=== PATIENT | female | born 1950 | race Caucasian/White ===

== ENCOUNTER 2020-05-16 12:31 | Emergency (ER) | payer OTHER, SELFPAY ==
[2020-05-16 12:44] VITALS: BP 218/104; PULSE 84; RESP 28; O2SAT 98; BMI 23.0
--- NOTE | 2020-05-16 12:48 | DI.RAD.S_ITS ---
PROCEDURE: XR FINGER RT MIN 2V INDICATIONS: distal right middle finger injury TECHNIQUE: AP hand, 2 views of the 3rd finger(s) acquired. COMPARISON: None. FINDINGS: Bones: Displaced fracture involving 3rd distal phalangeal tuft is seen. No other fracture or dislocation. No suspicious bony lesions. Soft tissues: Soft tissue defect involving radial aspect of 3rd finger tip is seen with extensive adjacent soft tissue swelling. No radiopaque foreign body is seen. IMPRESSION: Likely traumatic amputation involving tip of 3rd finger with displaced fracture involving 3rd distal phalangeal tuft. No radiopaque foreign body is seen. Dictated by: Sachin Wang M.D. on 05/16/2020 at 13:26 Approved by: Sachin Wang M.D. on 05/16/2020 at 13:28
[2020-05-16] MEDS: LIDO 1%/SOD BICARB 8.4% (10ML) 10 ML SYRINGE INJ (12:52)
--- NOTE | 2020-05-16 12:59 | ED_ITS ---
HPI - General Adult General Chief complaint: Extremity Injury, Upper Stated complaint: crushed middle finger right hand, states severed Time Seen by Provider: 05/16/20 12:48 Source: patient Mode of arrival: Ambulatory Limitations: no limitations History of Present Illness HPI narrative: Patient is a 69-year-old [id number] female who is here for evaluation of injury to her right middle finger. She states that she got it caught in a ladder as it was closing and felt like cut the tip of her finger off. Had also took her nail off as well. She is up-to-date on all of her immunizations. Covered with the bandage she came to the emergency department for evaluation. Related Data Previous Rx's Medication Instructions Recorded hydrocodone-acetaminophen 1 tab PO Q4-6H PRN #14 tab 05/16/20 Allergies Allergy/AdvReac Type Severity Reaction Status Date / Time Penicillins Allergy Verified 05/16/20 12:52 vancomycin AdvReac Verified 05/16/20 12:51 Review of Systems Constitutional Constitutional: Denies headache(s) ENT Ears, Nose, Mouth, and Throat: Denies headache(s) Musculoskeletal Comments: Injury to right middle finger Integumentary/Breasts Comments: Injury to right middle finger and nail Neurologic Neurologic: Denies behavioral changes and Denies headache(s) Psychiatric Psychiatric: Denies behavioral changes Hematologic/Lymphatic On Anticoagulants: No Patient History Medical History Healthy adult Social History Smoking Status: Never smoker Smoking Status: Never smoker alcohol intake frequency: holidays/special occasions only Substance Use Type: does not use Exam Initial Vital Signs Initial Vital Signs: Vital Signs Pulse Rate 84 05/16/20 12:44 Respiratory Rate 28 H 05/16/20 12:44 Blood Pressure 218/104 H 05/16/20 12:44 Pulse Oximetry 98 05/16/20 12:44 Const General: cooperative and comfortable Limitations: mental status not altered Cardio Pulses: radial pulses present on the right Skin Other: Patient with an avulsion of the soft tissue of the right middle finger radial aspect. It does not involve the D IP joint. The fingernail was also involved with does not appear to involve the nailbed. Neuro Sensory Exam: no sensory deficits noted Extrem Other: see skin section Procedures Nerve Block Nerve Block 1: Time out performed: Yes Local Anesthetic: lidocaine 1% and with bicarb Amount of anesthesia used (mL): 10 Side: right Nerve Blocks: digital Procedure Successful: Yes Patient Tolerated Procedure: Well Complications: none Course Orders Ordered: ED Orders 05/16/20 12:48 XR finger RT min 2V Stat Discontinued Medications Hydrocodone Bitart/Acetaminophen (Hydrocodone/Acet 5/325 Tablet) 1 tab PO NOW ONE Stop: 05/16/20 14:28 Last Admin: 05/16/20 14:30 Dose: 1 tab Documented by: SIGIFREDO Lidocaine/Sodium Bicarbonate (Lido 1%/Sod Bicarb 8.4% (10ml) 10 Ml Syringe) 10 ml INJ NOW ONE Stop: 05/16/20 12:48 Last Admin: 05/16/20 12:52 Dose: 10 ml Documented by: SIGIFREDO Vital Signs Vital signs: Vital Signs - 8 hr 05/16/20 12:44 05/16/20 14:41 Pulse Rate 84 87 Respiratory Rate 28 H 14 Blood Pressure 218/104 H 178/105 H Pulse Oximetry 98 95 Medical Decision Making Imaging Data Extremity x-ray #1: Radiologist's Impression: [address] [id number] ReportSigned Patient: Ivanna Dia#: [id number]: 1950Acct:[id number]/Sex: 69 / FDate of Service: 05/16/20Loc: EDAccession Number: [id number] Procedure: XR finger RT min 2V Ordering Provider: Yeison Jama D.O. PROCEDURE: XR FINGER RT MIN 2V INDICATIONS: distal right middle finger injury TECHNIQUE: AP hand, 2 views of the 3rd finger(s) acquired. COMPARISON: None. FINDINGS: Bones: Displaced fracture involving 3rd distal phalangeal tuft is seen. No other fracture or dislocation. No suspicious bony lesions. Soft tissues: Soft tissue defect involving radial aspect of 3rd finger tip is seen with extensive adjacent soft tissue swelling. No radiopaque foreign body is seen. IMPRESSION: Likely traumatic amputation involving tip of 3rd finger with displaced fracture involving 3rd distal phalangeal tuft. No radiopaque foreign body is seen. Dictated by: Sachin Wang M.D. on 05/16/2020 at 13:26 Approved by: Sachin Wang M.D. on 05/16/2020 at 13:28 [facility] Narrative Medical decision making narrative: There were no signs of any fractures on the x-ray. She does have an amputation of the distal portion of the middle finger on the radial aspect. Unfortunately there is nothing to be sutured in this area. The nail was removed at the time of the event but the nail bed appears intact. I was able to replace the nail back under the nail bed to keep it open. The area was covered with a Vaseline gauze and then covered with another bandage. She was given return precautions and follow-up instructions. She expressed understanding agreement. Discharge Plan Departure Patient Disposition: Home Clinical Impression: Avulsion of finger tip Activity Restrictions/Additional Instructions: Recommend that you change the outer bandage every day and the Vaseline gauze bandage every other day. Use the pain medicine is needed. You can wash your hands like normal but do not soak your hands and anything. Contact your primary provider for follow-up. Return to the emergency department for any new or worsening symptoms Prescriptions: New hydrocodone-acetaminophen 5-325 mg tablet 1 tab PO Q4-6H PRN (Reason: pain) Qty: 14 RF: 0
--- NOTE | 2020-05-16 13:04 | PC.NURSE ---
patient was on her boat and got her finger crushed on the ladder. She has a partial degloving of her right middle distal finger. Approx 1cm of finger and the nail are missing from her finger.
[2020-05-16] MEDS: HYDROCODONE/ACET 5/325 TABLET 1 TAB PO (14:30)
[2020-05-16 14:41] VITALS: BP 178/105; PULSE 87; RESP 14; O2SAT 95
== END 2020-05-16 14:43 | disposition home or self-care (01) ==
PROVIDERS: Emergency Provider Emergency Medicine
DX: S61.303A Unspecified open wound of left middle finger with damage to nail, initial encounter (principal); W23.0XXA Caught, crushed, jammed, or pinched between moving objects, initial encounter
CPT/HCPCS: 64450; 73140; 99283; 99284